=== PATIENT | female | born 1980 | race Caucasian/White ===

== ENCOUNTER 2022-08-26 14:28 | Outpatient (CLI) | payer OTHER, SELFPAY ==
--- NOTE | 2022-08-26 14:40 | CRLHL7_ITS ---
For Patients: As a result of the Century Cures Act, medical imaging exams and procedure reports are released immediately into your electronic medical record. You may view this report before your referring provider. If you have questions, please contact your health care provider. BILATERAL SCREENING MAMMOGRAM WITH COMPUTER-AIDED DETECTION AND TOMOSYNTHESIS TECHNIQUE: CC and MLO views were obtained. These mammographic images have been obtained using full-field digital technique. These mammographic images were interpreted with the benefit of computer-aided detection. Breast Tomosynthesis was used in this interpretation. COMPARISON FILM: 08/16/21. FINDINGS: The breasts are heterogeneously dense, which may obscure small masses IMPRESSION: There is no radiographic evidence for malignancy. ASSESSMENT: BI-RADS Category 1: Negative RECOMMENDATION: Routine screening mammogram in 1 year. A lay language report of this examination will be provided to the patient. Sandhya Bullard M.D. Diagnostic/Breast Radiologist [email or web address] SAMM/Dictated by: Sandhya Bullard MD @ 08/29/2022 8:28:00 AM (Electronically Signed)
== END 2022-08-26 14:29 | disposition home or self-care (01) ==
LOC: MAMMO 14:29
PROVIDERS: PCP Nurse Practitioner Family; Visit Provider Nurse Practitioner Family
DX: Z12.31 Encounter for screening mammogram for malignant neoplasm of breast (principal); R92.2 Inconclusive mammogram
CPT/HCPCS: 77063; 77067

== ENCOUNTER 2022-09-20 14:42 | Outpatient (CLI) | payer OTHER, SELFPAY | END 2022-09-20 14:43 | disposition home or self-care (01) | PROVIDERS: PCP Emergency Medicine; Visit Provider Emergency Medicine | DX: R10.9 Unspecified abdominal pain (principal) | CPT/HCPCS: 80053; 83690; 87086 ==

== ENCOUNTER 2022-09-22 09:00 | Outpatient (CLI) | payer OTHER, SELFPAY | END 2022-09-22 09:01 | disposition home or self-care (01) | LOC: NFLDREF 09-24 09:00 | PROVIDERS: PCP Emergency Medicine; Referring Provider Emergency Medicine; Visit Provider Emergency Medicine | DX: R10.9 Unspecified abdominal pain (principal) | CPT/HCPCS: 87338 ==

== ENCOUNTER 2023-02-08 13:08 | Outpatient (CLI) | payer OTHER, SELFPAY | END 2023-02-08 13:09 | disposition home or self-care (01) | PROVIDERS: PCP Emergency Medicine; Visit Provider Emergency Medicine | DX: Z00.00 Encounter for general adult medical examination without abnormal findings (principal); E61.1 Iron deficiency; D64.9 Anemia, unspecified; R00.2 Palpitations | CPT/HCPCS: 80048; 82728; 84443 ==

== ENCOUNTER 2023-05-08 09:59 | Outpatient (CLI) | payer OTHER, SELFPAY | END 2023-05-08 10:00 | disposition home or self-care (01) | LOC: NFLDREF 05-10 07:31 | PROVIDERS: PCP Emergency Medicine; Referring Provider Emergency Medicine; Visit Provider Emergency Medicine | DX: D64.9 Anemia, unspecified (principal) | CPT/HCPCS: 82728; 85027; 86364 ==

== ENCOUNTER 2023-08-29 11:12 | Outpatient (CLI) | payer OTHER, SELFPAY ==
--- NOTE | 2023-08-29 11:30 | MM_ITS ---
Patient: MONSE EDWARDS Facility:?[facility] Patient ID:?[id number] Site Patient ID:?[id number]. Site :?[id number] Study:?XRay-Breast Bilateral 3D W/CAD-08/29/2023 11:40:07 AM Ordering Physician:?Kinga Johnson Final Report: BILATERAL SCREENING MAMMOGRAM WITH COMPUTER-AIDED DETECTION AND TOMOSYNTHESIS TECHNIQUE: CC and MLO views were obtained. These mammographic images have been obtained using full-field digital technique. These mammographic images were interpreted with the benefit of computer-aided detection. Breast Tomosynthesis was used in this interpretation. COMPARISON FILM: 08/26/22, 08/16/21. FINDINGS: The breasts are heterogeneously dense, which may obscure small masses. IMPRESSION: There is no radiographic evidence for malignancy. ASSESSMENT: BI-RADS Category 1: Negative RECOMMENDATION: Routine screening mammogram in 1 year. A lay language report of this examination will be provided to the patient. Uriah Elam M.D. Diagnostic Radiologist [email or web address] DSM/sp R& Transcribed: 5:07 p.m. SP/Dictated by: Uriah Elam MD @ 09/07/2023 11:03:00 AM Signed by:?Uriah Elam MD @09/07/2023 8:24:30 PM (Electronic Signature)
== END 2023-08-29 11:13 | disposition home or self-care (01) ==
LOC: MAMMO 11:13
PROVIDERS: PCP Emergency Medicine; Visit Provider Emergency Medicine
DX: Z12.31 Encounter for screening mammogram for malignant neoplasm of breast (principal); R92.2 Inconclusive mammogram
CPT/HCPCS: 77063; 77067

== ENCOUNTER 2023-11-09 08:30 | Outpatient (CLI) | payer OTHER, SELFPAY | END 2023-11-09 08:31 | disposition home or self-care (01) | LOC: NFLDREF 11-13 14:33 | PROVIDERS: PCP Emergency Medicine; Referring Provider Emergency Medicine; Visit Provider Emergency Medicine | DX: Z00.00 Encounter for general adult medical examination without abnormal findings (principal); D50.0 Iron deficiency anemia secondary to blood loss (chronic); E61.1 Iron deficiency; Z13.6 Encounter for screening for cardiovascular disorders; Z13.9 Encounter for screening, unspecified | CPT/HCPCS: 80048; 80061; 82728 ==

== ENCOUNTER 2024-09-24 13:00 | Outpatient (CLI) | payer OTHER, SELFPAY ==
--- NOTE | 2024-09-24 13:00 | CRLHL7_ITS ---
For Patients: As a result of the Century Cures Act, medical imaging exams and procedure reports are released immediately into your electronic medical record. You may view this report before your referring provider. If you have questions, please contact your health care provider. INDICATION: BILATERAL SCREENING MAMMOGRAM, ASYMPTOMATIC 44 F COMPARISON: 08/29/23, 08/26/22, 08/16/21 TECHNIQUE: CC and MLO views were obtained. These mammographic images have been obtained using full-field digital technique. These mammographic images were interpreted with the benefit of computer aided detection and tomosynthesis. BREAST COMPOSITION: The breasts are extremely dense, which lowers the sensitivity of mammography. FINDINGS: No suspicious findings. ASSESSMENT: BI-RADS 1 Negative RECOMMENDATION: Annual screening mammogram. A lay language report of this examination will be provided to the patient. Dictated by: Uriah Elam MD @ 09/26/2024 12:59:26 (Electronically Signed)
== END 2024-09-24 13:01 | disposition home or self-care (01) ==
LOC: MAMMO 13:00
PROVIDERS: PCP Emergency Medicine; Visit Provider Emergency Medicine
DX: Z12.31 Encounter for screening mammogram for malignant neoplasm of breast (principal); R92.343 Mammographic extreme density, bilateral breasts
CPT/HCPCS: 77063; 77067

== ENCOUNTER 2025-02-11 10:40 | Outpatient (CLI) | payer OTHER, SELFPAY ==
[2025-02-12 22:35] LABS: HPV Source Cervix
[2025-02-14 13:09] LABS: Pap Test Digital Imaging Done
== END 2025-02-11 10:41 | disposition home or self-care (01) ==
PROVIDERS: Visit Provider Physician Assistant
DX: Z12.4 Encounter for screening for malignant neoplasm of cervix (principal); Z11.51 Encounter for screening for human papillomavirus (HPV)
CPT/HCPCS: 87624; 87625; 88141; 88142; 88175

== ENCOUNTER 2025-02-14 08:35 | Outpatient (CLI) | payer OTHER, SELFPAY | END 2025-02-14 08:36 | disposition home or self-care (01) | LOC: NFLDREF 02-18 08:46 | PROVIDERS: Visit Provider Physician Assistant | DX: R53.83 Other fatigue (principal); E61.1 Iron deficiency; Z13.6 Encounter for screening for cardiovascular disorders; Z12.4 Encounter for screening for malignant neoplasm of cervix; Z13.9 Encounter for screening, unspecified | CPT/HCPCS: 80053; 80061; 82306; 82728; 84443 ==